=== PATIENT | female | born 1975 | race Two or more races ===

== ENCOUNTER 2020-11-07 22:54 | Emergency (ER) | payer BC, MEDICAID ==
[~2020-11-07] VITALS: Ht 172.7 cm; Wt 81.8 kg
[2020-11-08] LABS: BASOPHILS # (AUTO) 0.1 X10'3 (0-0.2); BASOPHILS % (AUTO) 0.6 % (0-1); EOSINOPHILS % (AUTO) 0.2 % (0-6); HEMATOCRIT 37.6 % (35.0-45.0); HEMOGLOBIN 13.1 g/dl (12.0-16.0); LYMPHOCYTES # (AUTO) 1.3 X10'3 (1.1-4.8); LYMPHOCYTES % (AUTO) 10.2 % (21-51); MEAN CORPUSCULAR HEMOGLOBIN 32.3 PG (27.0-31.0); MEAN CORPUSCULAR HGB CONC 34.8 g/dL (33.0-36.5); MEAN CORPUSCULAR VOLUME 92.8 FL (78-98); MEAN PLATELET VOLUME 8.9 FL (7.4-10.4); MONOCYTES # (AUTO) 0.9 X10'3 (0-0.9); MONOCYTES % (AUTO) 6.9 % (2-12); NEUTROPHILS # (AUTO) 10.5 X10'3 (1.8-7.7); NEUTROPHILS % (AUTO) 82.1 % (42-75); PLATELET COUNT 281 X10'3 (140-440); RED BLOOD COUNT 4.05 X10'6 (4.20-5.60); RED CELL DISTRIBUTION WIDTH 13.2 % (11.5-14.5); WHITE BLOOD COUNT 12.8 X10'3 (4.5-11.0)
[2020-11-08 00:08] LABS: ALANINE AMINOTRANSFERASE 21 U/L (12-78); ALBUMIN 3.6 G/DL (3.4-5.0); ALBUMIN/GLOBULIN RATIO 0.9 (1.1-1.5); ALKALINE PHOSPHATASE 49 IU/L (46-116); ANION GAP 9 (8-16); ASPARTATE AMINO TRANSFERASE 15 U/L (10-37); BILIRUBIN,TOTAL 0.7 MG/DL (0.1-1.0); BLOOD UREA NITROGEN 9 MG/DL (7-18); BUN/CREATININE RATIO 10.7 (6.6-38.0); CALCIUM 8.2 MG/DL (8.5-10.1); CHLORIDE 103 MMOL/L (99-107); CREATININE 0.84 MG/DL (0.40-0.90); GLUCOSE 92 MG/DL (70-104); LIPASE < 50 U/L (73-393); POTASSIUM 3.6 MMOL/L (3.5-5.1); SODIUM 138 MMOL/L (135-145); TOTAL CARBON DIOXIDE 26.5 MMOL/L (24-32); TOTAL PROTEIN 7.5 G/DL (6.4-8.2); eGFR 73 ML/MIN
[2020-11-08 00:27] LABS: CLARITY,URINE CLEAR (Clear); COLOR,URINE YELLOW (Yellow); GLUCOSE, URINE NEGATIVE (Neg); KETONES,URINE 15 mg/dl (Neg); LEUKOCYTE ESTERASE ,URINE NEGATIVE (Neg); NITRITES, URINE NEGATIVE (Neg); OCCULT BLOOD,URINE SMALL (Neg); PROTEIN,URINE NEGATIVE (Neg); URINE HCG NEGATIVE (NEG); UROBILINOGEN,URINE 0.2 E.U/dL (0.2-1.0)
[2020-11-08 00:28] LABS: UA COLLECTION TYPE NON-SPECIFIED
[2020-11-08 00:33] LABS: BACTERIA,URINE FEW /HPF (Neg); RBC,URINE 0-2 /HPF (0-2); SQUAMOUS EPITHELIAL CELL,UR FEW /LPF (FEW); WBC,URINE 0-4 /HPF (0-4)
[2020-11-08 00:34] LABS: MUCUS STRANDS FEW /LPF (Neg)
[2020-11-08] MEDS ORDERED: normal saline 1000ml 1,000 ML IV ONE (02:15)
[2020-11-08] MEDS ORDERED: ketorolac trometh. 30mg/ml inj. IV ONE (02:20)
[2020-11-08] MEDS ORDERED: acetaminophen 325mg tablet PO ONE (02:20)
[2020-11-08] MEDS ORDERED: AMOX-115 PO (04:15)
[2020-11-08] MEDS ORDERED: piperacillin/tazo 4.5gm/100ml 100 ML IV ONE (04:15)
[2020-11-08 07:38] VITALS: BP 102/61
== END 2020-11-08 06:30 | disposition home or self-care (01) ==
LOC: ER 22:54
DX: K57.92 Diverticulitis of intestine, part unspecified, without perforation or abscess without bleeding (principal); R10.84 Generalized abdominal pain; Z72.89 Other problems related to lifestyle; Z79.2 Long term (current) use of antibiotics
CPT/HCPCS: 36415; 74176; 80053; 81001; 81025; 83605; 83690; 84145; 85025; 87040; 96361; 96365; 96375; 99284; J1885; J2543; J7030

== ENCOUNTER 2022-12-05 18:17 | Emergency (ER) | payer MEDICAID ==
[~2022-12-05] VITALS: Ht 175.3 cm; Wt 76.4 kg
[2022-12-05 18:43] VITALS: BP 115/67; PULSE 64; RESP 16; TEMP 98.9; O2SAT 99
[2022-12-05] MEDS ORDERED: IBUP-1986 PO (19:01)
[2022-12-05] MEDS ORDERED: ketorolac trometh inj. 60 MG/2 ML VIAL IM ONE (19:05)
== END 2022-12-05 19:33 | disposition home or self-care (01) ==
LOC: ER 18:18
DX: S93.401A Sprain of unspecified ligament of right ankle, initial encounter (principal); Z72.89 Other problems related to lifestyle; X50.1XXA Overexertion from prolonged static or awkward postures, initial encounter; Y93.89 Activity, other specified; Y92.89 Other specified places as the place of occurrence of the external cause; Y99.8 Other external cause status
CPT/HCPCS: 73610; 96372; 99283; J1885; L4360